=== PATIENT | male | born 1985 | race Caucasian/White ===

== ENCOUNTER → 2022-12-16 10:14 | Outpatient (CLI) | payer OTHER, SELFPAY ==
--- NOTE | ~2022-12-16 | MR_ITS ---
EXAMINATION: MR shoulder LT wo con DATE: 12/16/2022 10:50 INDICATION: Chronic left shoulder pain. TECHNIQUE: Magnetic resonance imaging (MRI) of the left shoulder was performed without intravenous co ntrast. Sequences included axial PD-weighted FS FSE, coronal oblique PD-weighted FS FSE and T2-weight ed FS FSE, and sagittal oblique T2-weighted FS FSE and T1-weighted FSE. COMPARISON: None. FINDINGS: Coracoacromial arch: The acromion undersurface is flat in morphology (type I). The acromioclavicular joint is normal. Ther e is a physiologic volume of fluid in subacromial/subdeltoid bursa. Rotator cuff: There is moderate tendinopathy of the conjoined portion of supraspinatus and infraspinatus tendons. T eres minor tendon is normal. Subscapularis tendon is normal. The rotator cuff muscle bellies are norm al. Biceps tendon and glenoid labrum: Biceps tendon is in bicipital groove. Intra-articular biceps tendon is normal. Fluid in the biceps te ndon sheath is out of proportion to the degree of joint fluid, consistent with tenosynovitis. There i s degeneration of the glenoid labrum without well-defined tear. Fluid: There is a small glenohumeral joint effusion. Bones/cartilage: The glenoid cartilage is normal. The humeral head cartilage is normal. IMPRESSION: 1. Moderate rotator cuff tendinopathy. No tear. 2. Biceps tenosynovitis. 3. Small glenohumeral joint effusion. Reviewed, dictated and finalized at location A. [facility]
== END ==
PROVIDERS: PCP Internal Medicine; Visit Provider Orthopaedic Surgery
DX: M75.22 Bicipital tendinitis, left shoulder (principal); M25.412 Effusion, left shoulder
CPT/HCPCS: 73221